=== PATIENT | female | born 1970 | race Caucasian/White ===

== ENCOUNTER 2019-11-14 20:09 | Emergency (ER) | payer BC ==
[2019-11-14 20:19] VITALS: BP 124/75
[2019-11-14] MEDS ORDERED: POLYMYXIN B/TRIMETH OPHTH DROPS LEFTEYE STA (20:41)
--- NOTE | 2019-11-14 20:45 | ED Physician Documentation ---
PD HPI OPHTHO - Stated complaint Stated Complaint: EYE SWELLING - Chief complaint Chief Complaint: Heent - History obtained from History obtained from: Patient - History of Present Illness Timing - onset: How many weeks ago (1) Timing - duration: Weeks (1) Timing - details: Gradual onset Pain level max: 2 Pain level now: 1 Location: Left (upper) Quality / character: Itching, Burning, Aching Associated symptoms: Other (swelling, upper eyelid pain) Contributing factors: Wears glasses. 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 : None HEENT: None Psych: None Musculoskeletal: None Derm: None Other Past Medical History: narcolepsy - Present Medications Home Medications: Ambulatory Orders Medication Instructions Recorded Confirmed Modafinil [Provigil] 200 mg PO DAILY 11/14/19 11/14/19 Polymyxin B/Trimeth Ophth Drop 1 drops LEFTEYE Q3H 7 Days #1 11/14/19 [Polytrim Ophth Drops] bottle - Allergies Allergies/Adverse Reactions: Allergies Allergy/AdvReac Type Severity Reaction Status Date / Time No Known Drug Allergies Allergy Verified 11/14/19 20:19 - Social History Does the pt smoke?: No Smoking Status: Never smoker PD ED PE NORMAL - Vitals Vital signs reviewed: Yes - General General: Alert and oriented X 3, No acute distress - HEENT HEENT: PERRL, EOMI (normal Conjunctiva bilaterally), Moist mucous membranes, Other (Mild swelling to the left upper eyelid, minimal erythema. No drainage. Otherwise normal examination.) - Neck Neck: Supple, no meningeal sign - Cardiac Cardiac: RRR - Derm Derm: Warm and dry - Neuro Neuro: Alert and oriented X 3 Results - Vitals Vitals: Vital Signs - 24 hr 11/14/19 20:10 Temperature 36.4 C L Heart Rate 87 Respiratory 14 Rate Blood Pressure 124/75 O2 Saturation 99 Oxygen O2 Source Room air PD MEDICAL DECISION MAKING - ED course Complexity details: considered differential, d/w patient ED course: Patient with left upper eyelid blepharitis. Not improving with warm compresses. We will add ophthalmic antibiotics. Patient counseled regarding signs and symptoms for which I believe and urgent re-evaluation would be necessary. Patient with good understanding of and agreement to plan and is comfortable going home at this time This document was made in part using voice recognition software. While efforts are made to proofread this document, sound alike and grammatical errors may occur. Patient does not wear contacts and does not have any conjunctival injection. Departure - Departure Disposition: 01 Home, Self Care Clinical Impression: Stye Qualifiers: Laterality: left Eyelid: upper Qualified Code(s): H00.014 - Hordeolum externum left upper eyelid Blepharitis Qualifiers: Blepharitis type: unspecified type Laterality: left Eyelid: upper Qualified Code(s): H01.004 - Unspecified blepharitis left upper eyelid Condition: Good Instructions: ED Inflammation Eyelid Follow-Up: Tatiana Diehl MD [Primary Care Provider] - Within 1 week Prescriptions: Polymyxin B/Trimeth Ophth Drop [Polytrim Ophth Drops] 1 drops LEFTEYE Q3H 7 Days #1 bottle Comments: Use the drops as prescribed. Return if you worsen. Follow-up with your doctor for further care. You can use warm compresses as well at home. You can also use Zaditor eyedrops for any itching. Discharge Date/Time: 11/14/19 20:53
== END 2019-11-14 20:53 | disposition home or self-care (01) ==
LOC: ED 20:09
DX: H01.004 Unspecified blepharitis left upper eyelid (principal); H00.014 Hordeolum externum left upper eyelid
CPT/HCPCS: 99282; 99284; A9270